=== PATIENT | female | born 1990 | race Caucasian/White ===

== ENCOUNTER → 2018-11-13 | Outpatient (REF) | payer OTHER | LOC: M LAB REF 12:26 | PROVIDERS: ATTEND Physician Assistant | DX: R30.0 Dysuria (principal) ==

== ENCOUNTER → 2020-05-26 | Outpatient (REF) | payer OTHER, SELFPAY | LOC: M WUC 13:50 | PROVIDERS: ATTEND Nurse Practitioner Family | DX: N39.0 Urinary tract infection, site not specified (principal) ==

== ENCOUNTER → 2020-08-14 | Outpatient (CLI) | payer SELFPAY | LOC: M LABSMTC 13:28 | PROVIDERS: ATTEND Pediatrics | DX: Z20.828 Contact with and (suspected) exposure to other viral communicable diseases (principal) ==

== ENCOUNTER → 2020-10-16 | Outpatient (REF) | payer SELFPAY | LOC: M LABSMTC 09:28 → EDSTATUS 09:30 | PROVIDERS: ATTEND Pediatrics | DX: Z20.822 Contact with and (suspected) exposure to COVID-19 (principal) ==

== ENCOUNTER → 2020-12-28 | Outpatient (CLI) | payer BC ==
[2020-12-28 17:59] LABS: BASO # 0.1 10^3/uL (0.0-0.2); BASO % 0.7 % (0.0-1.0); EOS # 0.5 10^3/uL (0.0-0.5); EOS % 4.5 % (0.0-3.0); HEMATOCRIT 41.5 % (36.0-47.0); HEMOGLOBIN 13.5 g/dl (12.0-15.5); LYMPH # 3.6 10^3/uL (1.5-5.0); LYMPH % 36.2 % (24.0-44.0); MEAN CORPUSCULAR HEMOGLOBIN 29.7 pg (27.0-33.0); MEAN CORPUSCULAR HGB CONC 32.5 g/dl (32.0-36.5); MEAN CORPUSCULAR VOLUME 91.4 fl (80.0-96.0); MONO # 0.7 10^3/uL (0.0-0.8); MONO % 6.8 % (2.0-8.0); NEUTROPHILS # 5.2 10^3/uL (1.5-8.5); NEUTROPHILS % 51.7 % (36.0-66.0); PLATELET COUNT, AUTOMATED 242 10^3/uL (150-450); RED BLOOD COUNT 4.54 10^6/uL (4.00-5.40); WHITE BLOOD COUNT 10.1 10^3/uL (4.0-10.0)
[2020-12-28 18:38] LABS: BLOOD UREA NITROGEN 10 MG/DL (7-18); CALCIUM LEVEL 9.1 MG/DL (8.5-10.1); CARBON DIOXIDE LEVEL 26 MEQ/L (21-32); CHLORIDE LEVEL 105 MEQ/L (98-107); CREATININE FOR GFR 0.77 MG/DL (0.55-1.30); FREE T4 0.92 NG/DL (0.76-1.46); GLOMERULAR FILTRATION RATE > 60.0 (>60); GLUCOSE, FASTING 79 MG/DL (70-100); POTASSIUM SERUM 4.1 MEQ/L (3.5-5.1); SODIUM LEVEL 139 MEQ/L (136-145)
== END ==
LOC: M LAB 15:45
PROVIDERS: ATTEND Physician Assistant Medical
DX: R53.83 Other fatigue (principal); E55.9 Vitamin D deficiency, unspecified

== ENCOUNTER → 2021-05-13 | Outpatient (REF) | payer BC | LOC: M SFHCWAGY 18:25 | PROVIDERS: ATTEND Advanced Practice Midwife | DX: Z12.4 Encounter for screening for malignant neoplasm of cervix (principal); N88.8 Other specified noninflammatory disorders of cervix uteri | CPT/HCPCS: 87624; G0123 ==

== ENCOUNTER → 2022-02-24 | Outpatient (CLI) | payer BC ==
[2022-02-24 14:25] LABS: BASO # 0.1 10^3/uL (0.0-0.2); BASO % 0.7 % (0.0-1.0); EOS # 0.3 10^3/uL (0.0-0.5); EOS % 2.8 % (0.0-3.0); HEMATOCRIT 38.6 % (36.0-47.0); HEMOGLOBIN 12.7 g/dl (12.0-15.5); LYMPH % 27.5 % (24.0-44.0); MEAN CORPUSCULAR HEMOGLOBIN 29.3 pg (27.0-33.0); MEAN CORPUSCULAR HGB CONC 32.9 g/dl (32.0-36.5); MEAN CORPUSCULAR VOLUME 88.9 fl (80.0-96.0); MONO # 0.7 10^3/uL (0.0-0.8); MONO % 6.5 % (2.0-8.0); NEUTROPHILS # 6.7 10^3/uL (1.5-8.5); NEUTROPHILS % 62.1 % (36.0-66.0); PLATELET COUNT, AUTOMATED 237 10^3/uL (150-450); RED BLOOD COUNT 4.34 10^6/uL (4.00-5.40); WHITE BLOOD COUNT 10.8 10^3/uL (4.0-10.0)
[2022-02-24 15:00] LABS: ALBUMIN 3.9 GM/DL (3.2-5.2); ALT/SGPT 21 U/L (12-78); BILIRUBIN,TOTAL 0.4 MG/DL (0.2-1.0); BLOOD UREA NITROGEN 12 MG/DL (7-18); CALCIUM LEVEL 9.7 MG/DL (8.5-10.1); CARBON DIOXIDE LEVEL 24 MEQ/L (21-32); CHLORIDE LEVEL 106 MEQ/L (98-107); CREATININE FOR GFR 0.72 MG/DL (0.55-1.30); FREE T4 0.89 NG/DL (0.76-1.46); GLOMERULAR FILTRATION RATE > 60.0 (>60); GLUCOSE, FASTING 82 MG/DL (70-100); POTASSIUM SERUM 4.2 MEQ/L (3.5-5.1); SODIUM LEVEL 138 MEQ/L (136-145); TOTAL PROTEIN 7.1 GM/DL (6.4-8.2)
[2022-02-24 15:01] LABS: TOTAL 25(OH) VITAMIN D 26.8 NG/ML (30.0-100.0)
== END ==
LOC: M LAB 13:57
PROVIDERS: ATTEND Nurse Practitioner Family
DX: R11.0 Nausea (principal); R53.83 Other fatigue; R63.5 Abnormal weight gain

== ENCOUNTER → 2022-07-13 | Outpatient (REF) | payer BC | LOC: M SFHCWAGY 16:58 | PROVIDERS: ATTEND Obstetrics & Gynecology | DX: Z34.91 Encounter for supervision of normal pregnancy, unspecified, first trimester (principal); Z3A.00 Weeks of gestation of pregnancy not specified ==

== ENCOUNTER → 2022-07-28 | Outpatient (CLI) | payer BC ==
[2022-07-28 15:06] LABS: HEMATOCRIT 37.3 % (36.0-47.0); HEMOGLOBIN 12.2 g/dl (12.0-15.5); MEAN CORPUSCULAR HEMOGLOBIN 29.5 pg (27.0-33.0); MEAN CORPUSCULAR HGB CONC 32.7 g/dl (32.0-36.5); MEAN CORPUSCULAR VOLUME 90.1 fl (80.0-96.0); PLATELET COUNT, AUTOMATED 291 10^3/uL (150-450); RED BLOOD COUNT 4.14 10^6/uL (4.00-5.40); WHITE BLOOD COUNT 14.2 10^3/uL (4.0-10.0)
[2022-07-28 16:17] LABS: HEPATITIS C VIRUS ABY INDEX < 0.0 INDEX (<0.8); HIV 1&2 SCREEN CENTAUR NEGATIVE (NEGATIVE)
[2022-07-28 16:22] LABS: GC DNA AMPLIFICATION NEGATIVE (NEGATIVE)
== END ==
LOC: M PLALAB 10:56
PROVIDERS: ATTEND Obstetrics & Gynecology
DX: Z34.91 Encounter for supervision of normal pregnancy, unspecified, first trimester (principal); Z3A.00 Weeks of gestation of pregnancy not specified

== ENCOUNTER → 2022-09-01 | Outpatient (CLI) | payer BC | LOC: M PLALAB 11:53 | PROVIDERS: ATTEND Specialist | DX: Z34.80 Encounter for supervision of other normal pregnancy, unspecified trimester (principal); Z3A.00 Weeks of gestation of pregnancy not specified ==

== ENCOUNTER → 2022-10-28 | Outpatient (CLI) | payer BC | LOC: M WHC 12:49 | PROVIDERS: ATTEND Obstetrics & Gynecology | DX: Z34.92 Encounter for supervision of normal pregnancy, unspecified, second trimester (principal); Z3A.21 21 weeks gestation of pregnancy ==

== ENCOUNTER → 2022-12-16 | Outpatient (CLI) | payer BC ==
[2022-12-16 13:37] LABS: HEMATOCRIT 32.4 % (36.0-47.0); HEMOGLOBIN 10.4 g/dl (12.0-15.5); MEAN CORPUSCULAR HGB CONC 32.1 g/dl (32.0-36.5); MEAN CORPUSCULAR VOLUME 87.1 fl (80.0-96.0); PLATELET COUNT, AUTOMATED 233 10^3/uL (150-450); RED BLOOD COUNT 3.72 10^6/uL (4.00-5.40); WHITE BLOOD COUNT 13.5 10^3/uL (4.0-10.0)
[2022-12-16 15:04] LABS: GC DNA AMPLIFICATION NEGATIVE (NEGATIVE)
== END ==
LOC: M PLALAB 09:35
PROVIDERS: ATTEND Obstetrics & Gynecology
DX: Z34.92 Encounter for supervision of normal pregnancy, unspecified, second trimester (principal); Z3A.00 Weeks of gestation of pregnancy not specified

== ENCOUNTER → 2023-02-13 | Outpatient (REF) | payer BC | LOC: M SFHCWAGY 17:24 | PROVIDERS: ATTEND Advanced Practice Midwife | DX: Z34.83 Encounter for supervision of other normal pregnancy, third trimester (principal) ==

== ENCOUNTER 2023-03-13 09:59 | Inpatient (IN) | payer BC ==
[~2023-03-13] VITALS: Ht 160 cm; Wt 94.3 kg
[2023-03-13] MEDS ORDERED: SERT25TA85 PO (10:17)
[2023-03-13] MEDS ORDERED: OMEP-173 PO (10:17)
[2023-03-13] MEDS ORDERED: PRENTAB9 PO (10:17)
[2023-03-13] MEDS ORDERED: HOME MED LIST COMPLETE! XX SCH (10:20)
[2023-03-13 10:29] VITALS: BP 124/72
[2023-03-13] MEDS ORDERED: LACTATED RINGER'S 1000 ML IV STA (10:32)
[2023-03-13] MEDS ORDERED: OXYTOCIN INJ 10UNITS/ML 1ML VIAL IM PRN (10:35)
[2023-03-13] MEDS ORDERED: TRANEXAMIC ACID INJection 1,000 MG in NS 100 ML IV PRN (10:35)
[2023-03-13] MEDS ORDERED: OXYTOCIN DRIP 30 UNITS in IV 1 EA IV PRN (10:35)
[2023-03-13] MEDS ORDERED: METHYLERGONOVINE MALEATE 0.2MG/ML 1ML VIAL IM PRN (10:35)
[2023-03-13] MEDS ORDERED: CARBOPROST TROMETHAMINE 250 MCG/ML AMP IM PRN (10:35)
[2023-03-13] MEDS ORDERED: LIDOCAINE 1% MDV 20ML VIAL INFIL PRN (10:35)
[2023-03-13 11:14] LABS: HEMATOCRIT 29.5 % (36.0-47.0); MEAN CORPUSCULAR HEMOGLOBIN 22.9 pg (27.0-33.0); MEAN CORPUSCULAR HGB CONC 30.5 g/dl (32.0-36.5); MEAN CORPUSCULAR VOLUME 75.1 fl (80.0-96.0); PLATELET COUNT, AUTOMATED 180 10^3/uL (150-450); RED BLOOD COUNT 3.93 10^6/uL (4.00-5.40); WHITE BLOOD COUNT 10.3 10^3/uL (4.0-10.0)
[2023-03-13 12:42] VITALS: BP 127/71
[2023-03-13] MEDS: miSOPROStol 50MCG 1/2 TABLET PO SCH ×3 (12:42→21:05)
[2023-03-13 14:00] VITALS: BP 127/69
[2023-03-13 16:58] VITALS: BP 124/59
[2023-03-13 21:07] VITALS: BP 122/68
[2023-03-14] VITALS (40 sets, daily range): BP systolic 109–158; BP diastolic 61–99; O2SAT 90–100
[2023-03-14] MEDS: miSOPROStol 50MCG 1/2 TABLET PO SCH (02:15)
[2023-03-14] MEDS ORDERED: OXYTOCIN DRIP 30 UNITS in IV 1 EA IV SCH (09:50)
[2023-03-14] MEDS ORDERED: ACETAMINOPHEN 500 MG TAB PO PRN (09:55)
[2023-03-14] MEDS: LR 1,000 ML IV SCH ×3 (09:56→15:46)
[2023-03-14] MEDS ORDERED: ONDANSETRON 4MG 2ML VIAL IV PRN ×3 (13:20→17:20)
[2023-03-14] MEDS ORDERED: FENTANYL 2MCG/ML ROPIVACAINE 0.2% IN 0.9% NACL 100ML IVBAG As Ordered ONE (14:15)
[2023-03-14] MEDS ORDERED: FENTANYL/ROPIVACAINE/NACL BAG 100 ML EPIDURAL SCH (14:30)
[2023-03-14] MEDS ORDERED: EPIDURAL/PCA KEYS XX PRN (14:30)
[2023-03-14] MEDS ORDERED: diphenhydrAMINE 50MG/ML VIAL IV PRN ×2 (14:30→17:20)
[2023-03-14] MEDS ORDERED: ePHEDrine SULFATE 25 MG/5 ML(5MG/ML) SYRINGE IVP PRN (14:30)
[2023-03-14] MEDS ORDERED: LR 500 ML IV PRN (14:30)
[2023-03-14] MEDS ORDERED: NALOXONE INJ 0.4MG/1ML VIAL IV PRN ×3 (14:30→17:20)
[2023-03-14] MEDS ORDERED: BICITRA 30ML SOLN UDC PO ONE (15:35)
[2023-03-14] MEDS ORDERED: AZITHROMYCIN INJ 500 MG, VIAL MATE ADAPTER 1 EACH in NS 250 ML IV ONE (15:35)
[2023-03-14] MEDS ORDERED: ceFAZolin SOD 2 GM in IV 1 EA IV ONE (15:35)
[2023-03-14] MEDS ORDERED: LIDOCAINE 2% W/EPINEPHRINE 20ML VIAL **PRES FREE As Ordered ONE (16:47)
[2023-03-14] MEDS ORDERED: METOCLOPRAMIDE INJ 10MG/2ML VIAL As Ordered ONE (16:47)
[2023-03-14] MEDS ORDERED: ONDANSETRON 4MG 2ML VIAL As Ordered ONE (16:47)
[2023-03-14] MEDS ORDERED: SODIUM BICARBONATE 8.4% INJ 50MEQ 50ML VIAL As Ordered ONE (16:47)
[2023-03-14] MEDS ORDERED: MORPHINE PRES-FREE INJ 10 MG/10 ML VIAL As Ordered ONE (16:47)
[2023-03-14] MEDS ORDERED: OXYTOCIN 30UNITS IN 0.9% NaCl 500ML IV BAG As Ordered ONE (16:47)
[2023-03-14] MEDS ORDERED: PHENYLephrine 500MCG 5ML (100MCG/ML) SYRINGE As Ordered ONE (16:47)
[2023-03-14] MEDS ORDERED: ACETAMINOPHEN 1000MG 100ML IV BAG As Ordered ONE (16:47)
[2023-03-14] MEDS ORDERED: KETOROLAC 60MG 2ML VIAL As Ordered ONE (16:47)
[2023-03-14 16:58] LABS: CORD GAS ABE A -6.7; CORD GAS ABE V -8.3; CORD GAS HCO3 A 22.6 MMOL/L; CORD GAS O2 SAT A 19.7 %; CORD GAS O2 SAT V 51.3 %; CORD GAS PCO2 A 61.4 mmHg; CORD GAS PCO2 V 51.8 mmHg; CORD GAS PH A 7.183 UNITS; CORD GAS PH V 7.205 UNITS; CORD GAS PO2 A 13.7 mmHg; CORD GAS PO2 V 25.3 mmHg; CORD GAS SBC A 17.3 MMOL/L; CORD GAS SBC V 16.9 MMOL/L; CORD GAS TCO2 A 24.4 MMOL/L; CORD GAS TCO2 V 21.6 MMOL/L
[2023-03-14] MEDS ORDERED: SLF 3 ML SYR IV SCH (17:20)
[2023-03-14] MEDS ORDERED: MEPERIDINE 25 MG/ML 1ML VIAL IV PRN (17:20)
[2023-03-14] MEDS ORDERED: METOCLOPRAMIDE INJ 10MG/2ML VIAL IV PRN (17:20)
[2023-03-14] MEDS ORDERED: fentaNYL 100 MCG/2 ML INJECTION IV PRN (17:20)
[2023-03-14] MEDS ORDERED: oxyCODONE 5MG TAB PO PRN ×3 (17:20→21:10)
[2023-03-14] MEDS ORDERED: traMADol 50 MG TAB PO ONE (17:20)
[2023-03-14] MEDS ORDERED: **NOTE PATIENT COMMENT** MISC XX SCH (17:20)
[2023-03-14] MEDS ORDERED: RHOGAM 300MCG (1500IU) INJ IM SCH (21:10)
[2023-03-14] MEDS ORDERED: LR 1,000 ML IV SCH (21:10)
[2023-03-14] MEDS ORDERED: SIMETHICONE 80MG CHEW TAB PO PRN (21:10)
[2023-03-14] MEDS ORDERED: OXYC-517 PO (21:19)
[2023-03-14] MEDS ORDERED: ACET-683 PO (21:19)
[2023-03-14] MEDS ORDERED: IBUP-1022 PO (21:19)
[2023-03-14] MEDS: KETOROLAC 30 MG/ML 1ML VIAL IV SCH (23:47)
[2023-03-15 02:00] VITALS: BP 116/62; O2SAT 97
[2023-03-15] MEDS: ACETAMINOPHEN 500 MG TAB PO SCH ×5 (05:52→23:07)
[2023-03-15 05:53] VITALS: BP 112/70; O2SAT 99
[2023-03-15] MEDS: KETOROLAC 30 MG/ML 1ML VIAL IV SCH ×2 (05:53→12:54)
[2023-03-15 06:39] LABS: HEMATOCRIT 27.5 % (36.0-47.0); HEMOGLOBIN 8.3 g/dl (12.0-15.5); MEAN CORPUSCULAR HEMOGLOBIN 23.1 pg (27.0-33.0); MEAN CORPUSCULAR HGB CONC 30.2 g/dl (32.0-36.5); MEAN CORPUSCULAR VOLUME 76.4 fl (80.0-96.0); PLATELET COUNT, AUTOMATED 202 10^3/uL (150-450); WHITE BLOOD COUNT 18.8 10^3/uL (4.0-10.0)
[2023-03-15 10:00] VITALS: BP 114/72; O2SAT 99
[2023-03-15] MEDS: SERTRALINE HCL 25 MG TABLET PO SCH (10:07)
[2023-03-15] MEDS: PRENATAL VITAMINS CHEWABLE TABLET PO SCH (10:07)
[2023-03-15 14:00] VITALS: BP 114/68; O2SAT 99
[2023-03-15 18:00] VITALS: BP 115/73; O2SAT 99
[2023-03-15] MEDS: IBUPROFEN 600MG TAB PO SCH (20:00)
[2023-03-15 22:00] VITALS: BP 119/71; O2SAT 96
[2023-03-16 02:00] VITALS: BP 121/78; O2SAT 100
[2023-03-16] MEDS: IBUPROFEN 600MG TAB PO SCH ×3 (02:02→13:46)
[2023-03-16] MEDS: ACETAMINOPHEN 500 MG TAB PO SCH ×2 (05:34→12:15)
[2023-03-16 06:00] VITALS: BP 120/69; O2SAT 96
[2023-03-16] MEDS: PRENATAL VITAMINS CHEWABLE TABLET PO SCH (08:08)
[2023-03-16] MEDS: SERTRALINE HCL 25 MG TABLET PO SCH (08:09)
[2023-03-16 08:38] VITALS: BP 120/69; TEMP 97.2; O2SAT 96
[2023-03-16] MEDS ORDERED: MEASLES,MUMPS,RUBELLA VACCINE INJ (MMR-II) SC.IMMUN ONE (09:00)
[2023-03-16 10:00] VITALS: BP 154/88; O2SAT 98
[2023-03-16 10:17] VITALS: BP 125/67
== END 2023-03-16 18:10 | disposition home or self-care (01) | DRG 540 ==
LOC: M LDI 09:59 → M OBS 03-14 19:07
PROVIDERS: ADMIT Advanced Practice Midwife; ATTEND Obstetrics & Gynecology
PROC: 3E0P7GC Introduction of Other Therapeutic Substance into Female Reproductive, Via Natural or Artificial Opening (ICD-10-PCS; 2023-03-13)
PROC: 10D00Z1 Extraction of Products of Conception, Low, Open Approach (ICD-10-PCS; principal; 2023-03-14 16:00)
DX: O36.8330 Maternal care for abnormalities of the fetal heart rate or rhythm, third trimester, not applicable or unspecified (principal); O77.8 Labor and delivery complicated by other evidence of fetal stress; O48.0 Post-term pregnancy; Z37.0 Single live birth; Z3A.40 40 weeks gestation of pregnancy

== ENCOUNTER → 2024-04-16 | Outpatient (CLI) | payer BC ==
[~2024-04-16] MED LIST: ACET-683 PO; IBUP-1022 PO; OMEP-173 PO; OXYC-517 PO; PRENTAB9 PO; SERT25TA85 PO
[2024-04-16 08:50] LABS: BASO # 0.1 10^3/uL (0.0-0.2); EOS # 0.4 10^3/uL (0.0-0.5); EOS % 6.3 % (0.0-3.0); HEMATOCRIT 40.7 % (36.0-47.0); HEMOGLOBIN 13.2 g/dl (12.0-15.5); LYMPH # 2.1 10^3/uL (1.5-5.0); LYMPH % 33.3 % (24.0-44.0); MEAN CORPUSCULAR HEMOGLOBIN 28.3 pg (27.0-33.0); MEAN CORPUSCULAR HGB CONC 32.4 g/dl (32.0-36.5); MEAN CORPUSCULAR VOLUME 87.3 fl (80.0-96.0); MONO # 0.3 10^3/uL (0.0-0.8); MONO % 5.5 % (2.0-8.0); NEUTROPHILS # 3.3 10^3/uL (1.5-8.5); NEUTROPHILS % 53.6 % (36.0-66.0); PLATELET COUNT, AUTOMATED 224 10^3/uL (150-450); RED BLOOD COUNT 4.66 10^6/uL (4.00-5.40); WHITE BLOOD COUNT 6.2 10^3/uL (4.0-10.0)
[2024-04-16 09:25] LABS: FREE T4 0.92 NG/DL (0.89-1.76); THYROID STIMULATING HORMONE 2.185 uIU/ML (0.55-4.78)
[2024-04-16 09:26] LABS: ALBUMIN 3.9 G/DL (3.2-5.2); ALKALINE PHOSPHATASE 57 U/L (46-116); ALT/SGPT 12 U/L (7.0-40); AST/SGOT < 8 U/L (<34); BILIRUBIN,TOTAL 0.5 MG/DL (0.3-1.2); BLOOD UREA NITROGEN 13 MG/DL (9-23); CALCIUM LEVEL 9.4 MG/DL (8.5-10.1); CARBON DIOXIDE LEVEL 27 MMOL/L (20-31); CHLORIDE LEVEL 107 MMOL/L (98-107); CREATININE FOR GFR 0.79 MG/DL (0.55-1.30); GLOMERULAR FILTRATION RATE > 60.0 (>60); GLUCOSE, FASTING 81 MG/DL (60-100); HCG, SERUM QUALITATIVE NEGATIVE (NEGATIVE); POTASSIUM SERUM 4.1 MMOL/L (3.5-5.1); SODIUM LEVEL 140 MMOL/L (136-145); TOTAL PROTEIN 6.9 G/DL (5.7-8.2)
[2024-04-16 09:27] LABS: HEMOGLOBIN A1c 5.2 % (4.0-6.0); PROLACTIN 6.03 NG/ML
== END ==
LOC: M LAB 08:06
PROVIDERS: ATTEND Registered Nurse
DX: N91.2 Amenorrhea, unspecified (principal); R63.5 Abnormal weight gain

== ENCOUNTER → 2024-06-24 | Outpatient (CLI) | payer BC | LOC: M PLALAB 14:55 | PROVIDERS: ATTEND Advanced Practice Midwife | DX: O20.9 Hemorrhage in early pregnancy, unspecified (principal) ==

== ENCOUNTER → 2025-01-27 | Outpatient (REF) | payer BC | LOC: M PLALAB 08:48 | PROVIDERS: ATTEND Nurse Practitioner Family | DX: Z53.9 Procedure and treatment not carried out, unspecified reason (principal) ==

== ENCOUNTER → 2025-02-03 | Outpatient (CLI) | payer BC ==
[2025-02-03 15:25] LABS: HEMATOCRIT 36.3 % (36.0-47.0); HEMOGLOBIN 11.9 g/dl (12.0-15.5); MEAN CORPUSCULAR HEMOGLOBIN 29.3 pg (27.0-33.0); MEAN CORPUSCULAR HGB CONC 32.8 g/dl (32.0-36.5); MEAN CORPUSCULAR VOLUME 89.4 fl (80.0-96.0); PLATELET COUNT, AUTOMATED 231 10^3/uL (150-450); RED BLOOD COUNT 4.06 10^6/uL (4.00-5.40); WHITE BLOOD COUNT 10.8 10^3/uL (4.0-10.0)
[2025-02-03 15:51] LABS: HIV 1&2 SCREEN NEGATIVE (NEGATIVE)
[2025-02-03 15:58] LABS: HEPATITIS C VIRUS ABY INDEX < 0.02 INDEX (<0.8)
[2025-02-03 16:31] LABS: Trichomonas vaginalis (AMP) NOT DETECTED (NEGATIVE)
[2025-02-03 16:54] LABS: GC DNA AMPLIFICATION NEGATIVE (NEGATIVE)
== END ==
LOC: M PLALAB 12:30
PROVIDERS: ATTEND Nurse Practitioner Family
DX: Z34.80 Encounter for supervision of other normal pregnancy, unspecified trimester (principal); Z3A.00 Weeks of gestation of pregnancy not specified

== ENCOUNTER → 2025-04-30 | Outpatient (CLI) | payer BC | LOC: M RAD 12:26 | PROVIDERS: ATTEND Nurse Practitioner Family | DX: O44.42 Low lying placenta NOS or without hemorrhage, second trimester (principal); Z3A.23 23 weeks gestation of pregnancy ==

== ENCOUNTER → 2025-05-23 | Outpatient (CLI) | payer BC ==
[2025-05-23 15:51] LABS: PLATELET COUNT, AUTOMATED 183 10^3/uL (150-450)
[2025-05-23 15:53] LABS: GLUCOSE CHALLENGE TEST 1 HOUR 133 MG/DL (LESS THAN 140)
[2025-05-23 16:28] LABS: HIV 1&2 SCREEN NEGATIVE (NEGATIVE)
[2025-05-23 16:36] LABS: HEPATITIS C VIRUS ABY INDEX < 0.02 INDEX (<0.8)
[2025-05-23 16:49] LABS: Trichomonas vaginalis (AMP) NOT DETECTED (NEGATIVE)
[2025-05-23 17:13] LABS: GC DNA AMPLIFICATION NEGATIVE (NEGATIVE)
== END ==
LOC: M PLALAB 11:20
PROVIDERS: ATTEND Nurse Practitioner Family
DX: Z34.80 Encounter for supervision of other normal pregnancy, unspecified trimester (principal)

== ENCOUNTER 2025-07-23 09:30 | Inpatient (IN) | payer BC ==
[~2025-07-23] VITALS: Ht 160 cm; Wt 92.4 kg
[~2025-07-23 09:30] MED LIST changes: -IBUP-1022 PO; +IBUP600T42 PO
[2025-08-15] VITALS (9 sets, daily range): BP systolic 96–118; BP diastolic 64–84; TEMP 97; O2SAT 96–98
[2025-08-15 06:00] LABS: PLATELET COUNT, AUTOMATED 179 10^3/uL (150-450)
[2025-08-15] MEDS ORDERED: HOME MED LIST COMPLETE! XX SCH (06:05)
[2025-08-15 06:53] LABS: HIV 1&2 SCREEN NEGATIVE (NEGATIVE)
[2025-08-15] MEDS: LR 1,000 ML IV SCH ×2 (06:59→09:15)
[2025-08-15] MEDS ORDERED: OXYTOCIN INJ 10UNITS/ML 1ML VIAL As Ordered ONE (07:33)
[2025-08-15] MEDS ORDERED: ONDANSETRON 4MG/2ML VIAL As Ordered ONE (07:33)
[2025-08-15] MEDS ORDERED: dexAMETHasone 4 MG/ML 1 ML VIAL As Ordered ONE (07:34)
[2025-08-15] MEDS ORDERED: KETOROLAC 30 MG/ML 1 ML VIAL As Ordered ONE (07:34)
[2025-08-15] MEDS: ceFAZolin SODIUM 2 GM in DEXTROSE 5% (D5W) ADV/MINI-BAG 50 ML IV ONE (07:35)
[2025-08-15] MEDS: BICITRA 30 ML SOLN UDC PO ONE (07:41)
[2025-08-15] MEDS ORDERED: MORPHINE PRES-FREE INJ 10 MG/10 ML VIAL As Ordered ONE (07:42)
[2025-08-15] MEDS ORDERED: PHENYLephrine 500MCG 5ML (100MCG/ML) SYRINGE As Ordered ONE (08:16)
[2025-08-15 08:32] LABS: CORD GAS ABE A -1.8; CORD GAS HCO3 A 25.9 MMOL/L; CORD GAS O2 SAT A 44.1 %; CORD GAS PCO2 A 56.7 mmHg; CORD GAS PH A 7.277 UNITS; CORD GAS PO2 A 19.6 mmHg; CORD GAS SBC A 21.7 MMOL/L; CORD GAS TCO2 A 27.6 MMOL/L
[2025-08-15 08:33] LABS: CORD GAS ABE V -4.2; CORD GAS HCO3 V 21.2 MMOL/L; CORD GAS O2 SAT V 98.2 %; CORD GAS PCO2 V 39.8 mmHg; CORD GAS PH V 7.344 UNITS; CORD GAS PO2 V 90.4 mmHg; CORD GAS SBC V 21.1 MMOL/L; CORD GAS TCO2 V 22.4 MMOL/L
[2025-08-15] MEDS ORDERED: diphenhydrAMINE 50 MG/ML VIAL IV PRN (08:55)
[2025-08-15] MEDS ORDERED: **NOTE PATIENT COMMENT** MISC XX SCH (08:55)
[2025-08-15] MEDS ORDERED: NALOXONE INJ 0.4 MG/1 ML VIAL IV PRN ×2 (08:55)
[2025-08-15] MEDS ORDERED: ONDANSETRON 4MG/2ML VIAL IV PRN ×2 (08:55→09:15)
[2025-08-15] MEDS: SLF 3 ML SYR IV SCH (08:55)
[2025-08-15] MEDS ORDERED: MEPERIDINE 25 MG/ML 1 ML VIAL IV PRN (08:55)
[2025-08-15] MEDS ORDERED: PERCOCET 5MG/325MG TAB PO PRN ×2 (09:15)
[2025-08-15] MEDS ORDERED: RHOGAM 300MCG (1500IU) INJ IM SCH (09:15)
[2025-08-15] MEDS: HYDROMORPHONE HCL 0.5 MG/0.5 ML SYRINGE IV PRN (09:23)
[2025-08-15] MEDS: KETOROLAC 30 MG/ML 1 ML VIAL IV SCH (15:16)
[2025-08-16] VITALS (7 sets, daily range): BP systolic 95–126; BP diastolic 62–82; O2SAT 95–99
[2025-08-16 07:00] LABS: PLATELET COUNT, AUTOMATED 146 10^3/uL (150-450)
[2025-08-16] MEDS: SERTRALINE HCL 50 MG TAB PO SCH (09:00)
[2025-08-16] MEDS: SIMETHICONE 80MG CHEW TAB PO PRN (10:29)
[2025-08-16] MEDS: PRENATAL VITAMINS CHEWABLE TABLET PO SCH (10:29)
[2025-08-16] MEDS: IBUPROFEN 800 MG TAB PO SCH (10:30)
[2025-08-16] MEDS: DOCUSATE SODIUM 100 MG CAPSULE PO PRN (10:30)
[2025-08-16] MEDS ORDERED: COLA100C5 PO (10:35)
[2025-08-16] MEDS ORDERED: IBUP80TA PO (10:35)
[2025-08-16] MEDS ORDERED: OXYC1TAB23 PO (10:37)
[2025-08-16 15:13] LABS: PLATELET COUNT, AUTOMATED 155 10^3/uL (150-450)
[2025-08-16] MEDS: ACETAMINOPHEN 500 MG TAB PO PRN (16:27)
[2025-08-17 01:55] VITALS: BP 128/74; O2SAT 96
[2025-08-17 05:49] VITALS: BP 115/71; O2SAT 96
[2025-08-17] MEDS: MEASLES,MUMPS,RUBELLA VACCINE INJ (MMR-II) SC.IMMUN ONE (09:00)
[2025-08-17] MEDS ORDERED: IRON SUCROSE 100 MG/5 ML VIAL IV ONE (10:10)
[2025-08-17] MEDS: IRON SUCROSE 200MG IVP IV ONE (10:56)
== END 2025-08-17 15:00 | disposition home or self-care (01) | DRG 540 ==
LOC: EDSTATUS 09:30 → M LDI 08-15 05:16 → M OBS 08-15 11:49
PROVIDERS: ADMIT Specialist; ATTEND Specialist
PROC: 10D00Z1 Extraction of Products of Conception, Low, Open Approach (ICD-10-PCS; principal; 2025-08-15 07:30)
DX: O34.211 Maternal care for low transverse scar from previous cesarean delivery (principal); Z37.0 Single live birth; Z3A.38 38 weeks gestation of pregnancy; O13.4 Gestational [pregnancy-induced] hypertension without significant proteinuria, complicating childbirth; O69.82X0 Labor and delivery complicated by other cord entanglement, without compression, not applicable or unspecified

== ENCOUNTER → 2025-07-29 | Outpatient (REF) | payer BC | LOC: M SFHCWAGY 10:35 | PROVIDERS: ATTEND Nurse Practitioner Family | DX: Z36.85 Encounter for antenatal screening for Streptococcus B (principal); Z3A.36 36 weeks gestation of pregnancy ==

== ENCOUNTER → 2025-09-04 | Outpatient (RCR) ==
[~2025-09-04] MED LIST changes: +COLA100C5 PO; +IBUP80TA PO; +OXYC1TAB23 PO
== END ==
LOC: M EMPSSV 08-25 08:13
PROVIDERS: ATTEND Family Medicine
DX: Z20.828 Contact with and (suspected) exposure to other viral communicable diseases (principal)